=== PATIENT | female | born 1995 | race Asian ===

== ENCOUNTER 2017-07-04 20:17 | Emergency (ER) | payer SELFPAY | END 2017-07-04 21:41 | disposition left against medical advice (07) | LOC: E/R 20:17 | DX: Z53.21 Procedure and treatment not carried out due to patient leaving prior to being seen by health care provider (principal) ==

== ENCOUNTER 2019-04-03 07:14 | Day surgery (SDC) | payer BC ==
[~2019-04-03] VITALS: Ht 162.6 cm; Wt 66.1 kg
[2019-04-03 07:37] VITALS: Ht 162.6 cm; Wt 66.1 kg
[2019-04-03] MEDS ORDERED: NO MEDICATIONS (07:57)
[2019-04-03 07:59] VITALS: BP 131/79; PULSE 78; RESP 16
--- NOTE | 2019-04-03 08:17 | PREAC ---
Date/Time of Note Date/Time of Note DATE: 04/03/19 TIME: 08:14 Anesthesia Eval and Record Evaluation Time Pre-Procedure Interview DATE: 04/03/19 TIME: 08:14 Age 23 Sex female NPO: 8 hrs Preoperative diagnosis Abdominal pain, constipation Planned procedure EGD, Colonoscopy Past Medical History Past Medical History: None Surgery & Anesthesia Issues No known issue Meds Anticoagulation: No Beta Mikhail within 24 hr: No Reason Beta Mikhail not given: Pt. not on B-Mikhail Reported Medications [No Medications] No Conflict Check 04/03/19 Meds reviewed: Yes Allergies Coded Allergies: No Known Drug Allergies (Verified Allergy, Mild, 04/03/19) Allergies Reviewed: Yes Labs/Studies Labs Reviewed: Reviewed by anesthesiologist test: N/A Studies: ECG Pre-procedure Exam Last vitals Vital Signs Date Temp Pulse Resp B/P (MAP) Pulse Ox O2 O2 Flow FiO2 Time Delivery Rate 04/03/19 98.6 78 16 131/79 100 Room Air 07:59 (96) Airway: Adequate mouth opening, Adequate thyromental dist Mallampati: Mallampati II Teeth: Normal Lung: Normal Heart: Normal ASA Physical Status ASA physical status: 2 Emergency: None Planned Anesthetic General/MAC: MAC Planned Pain Management Parenteral pain med Pre-operative Attestations Prior to commencing anesthesia and surgery, the patient was re-evaluated, there was verification of: *The patient's identity *The results of appropriate recent lab work and preoperative vital signs *The above evaluation not changing prior to induction *Anesthetic plan, risk benefits, alternative and complications discussed with patient/family; questions answered; patient/family understands, accepts and wishes to proceed. SONIA BOWENS MD April 03, 2019 08:17
[2019-04-03] MEDS ORDERED: PROPOFOL 60 ML ONE (08:18)
[2019-04-03] MEDS ORDERED: LIDOCAINE 2% (SDV) 5 ML INJ ONE (08:18)
--- NOTE | 2019-04-03 09:00 | PAC ---
Date/Time of Note Date/Time of Note DATE: 04/03/19 TIME: 09:00 Post-Anesthesia Notes Post-Anesthesia Note Last documented vital signs Vital Signs Date Temp Pulse Resp B/P (MAP) Pulse Ox O2 O2 Flow FiO2 Time Delivery Rate 04/03/19 98.6 78 16 131/79 100 Room Air 07:59 (96) Activity: WNL Respiratory function: WNL Cardiovascular function: WNL Mental status: Baseline Pain reasonably controlled: Yes Hydration appropriate: Yes Nausea/Vomiting absent: Yes Comments BP:112/56,P:78, Spo2:100%, T:98,8 SONIA BOWENS MD April 03, 2019 09:00
[2019-04-03 09:33] VITALS: BP 118/73; PULSE 79; RESP 16
== END 2019-04-03 10:50 | disposition home or self-care (01) ==
LOC: GIL 07:14
PROVIDERS: ATTEND Internal Medicine Gastroenterology
DX: K29.50 Unspecified chronic gastritis without bleeding (principal); R19.4 Change in bowel habit
CPT/HCPCS: 43239; 45378; 84703; Z7610; 88305; 88312